=== PATIENT | male | born 1995 | race Caucasian/White ===

== ENCOUNTER 2018-10-01 01:34 | Emergency (ER) | payer MEDICAID ==
--- NOTE | 2018-10-01 02:11 | ERPHSYRPT ---
- History of Present Illness Time Seen by Provider: 10/01/18 01:55 Source: patient Patient Subjective Stated Complaint: Right hand/wrist pain Triage Nursing Assessment: Patient ambulated back to ED and transferred self to bed. Patient A+O X 3. Patient's skin pink warm and dry. Patient complains of right hand-wrist pain 04/04. Patient states a steel pipe crushed his right hand/ wrist around 2 weeks ago. Patient states he was seen in [facility] immediate care and [place] [facility] and was dx with infection and fx. Patient states he was givien a wrist brace and 3 different antibiotics, which he can't remember the name. Patient states he reinjured his right hand/wrist going up wet stairs and he tried to catch himself using his right hand/wrist. Patient's right wrist-hand noted to be swollen, red and warm. Pulses wnl Patient's lungs clear a/p ashlie. Heart tones WNL Physician History: 22 y/o right handed white male presents with right hand and wrist pain, redness and swelling. present for approx 2 weeks after an injury at work. pt seen at an urgent care center and given antibx. no specific fx noted per pt. pt continues antibx keflex and another. pt slipped on steps earlier today and caught his right hand and wrist. pt travels for his job and has not stopped working or been able to see a pcp or orthopedic surgeon. Occurred: other (in the last 2 weeks or so.) Method of Injury: fell Quality: aching Severity of Pain-Max: moderate Severity of Pain-Current: moderate Extremities Pain Location: hand: right Modifying Factors: Improves With: movement Allergies/Adverse Reactions: No Known Drug Allergies Allergy (Verified 10/01/18 01:43) Home Medications: No Reportable Medications [No Reported Medications] 12/09/14 [History] Hx Tetanus, Diphtheria Vaccination/Date Given: Yes Hx Influenza Vaccination/Date Given: Yes Hx Pneumococcal Vaccination/Date Given: No Immunizations Up to Date: Yes - Review of Systems Constitutional: No Symptoms Eyes: No Symptoms Ears, Nose, & Throat: No Symptoms Respiratory: No Symptoms Cardiac: No Symptoms Abdominal/Gastrointestinal: No Symptoms Genitourinary Symptoms: No Symptoms Musculoskeletal: Fall, Injury (right hand and wrist) Skin: Other (redness dorsal aspect right hand) Neurological: No Symptoms Psychological: No Symptoms Endocrine: No Symptoms Hematologic/Lymphatic: No Symptoms Immunological/Allergic: No Symptoms All Other Systems: Reviewed and Negative - Past Medical History Pertinent Past Medical History: No Neurological History: No Pertinent History ENT History: No Pertinent History Cardiac History: No Pertinent History Respiratory History: Asthma Endocrine Medical History: No Pertinent History Musculoskeletal History: No Pertinent History GI Medical History: No Pertinent History History: No Pertinent History Psycho-Social History: No Pertinent History Male Reproductive Disorders: No Pertinent History - Past Surgical History Past Surgical History: Yes Neuro Surgical History: No Pertinent History Cardiac: No Pertinent History Respiratory: No Pertinent History Gastrointestinal: No Pertinent History Genitourinary: No Pertinent History Musculoskeletal: Orthopedic Surgery Male Surgical History: No Pertinent History Other Surgical History: LEFT WRIST SURGERY - Social History Smoking Status: Current every day smoker How long have you smoked: 4 Exposure to second hand smoke: No Alcohol Use: Socially Drug Use: none Patient Lives Alone: Yes Significant Family History: no pertinent family hx - Nursing Vital Signs Nursing Vital Signs: Initial Vital Signs Temperature 98.3 F 10/01/18 01:44 Pulse Rate 118 H 10/01/18 01:44 Respiratory Rate 18 10/01/18 01:44 Blood Pressure 146/92 10/01/18 01:44 O2 Sat by Pulse Oximetry 97 10/01/18 01:44 Pain Scale Pain Intensity 8 - Physical Exam General Appearance: no apparent distress, alert, anxiety Eyes, Ears, Nose, Throat Exam: normal ENT inspection, moist mucous membranes Neck Exam: normal inspection, non-tender, supple, full range of motion Cardiovascular/Respiratory Exam: chest non-tender, normal breath sounds Abdominal Exam: non-tender, soft Back Exam: normal inspection, normal range of motion, No CVA tenderness, No vertebral tenderness Shoulder Exam: normal inspection, non-tender, no evidence of injury, normal ROM Elbow/Forearm Exam: normal inspection, non-tender, no evidence of injury, normal ROM Wrist Exam: normal ROM, bone tenderness, soft tissue tenderness, swelling Hand Exam: normal ROM, bone tenderness, soft tissue tenderness, swelling Neuro/Tendon Exam: normal sensation, normal motor functions, normal tendon functions, responds to pain Mental Status Exam: alert, oriented x 3, cooperative Skin Exam: warm, dry, other (mild redness right hand dorsal aspect) SpO2 Interpretation: normal SpO2: 97 O2 Delivery: Room Air Ordered Tests: Active Orders 24 hr Category Date Time Status HAND (MINIMUM 3 VIEWS) Stat Exams 10/01/18 02:20 Taken - Progress Progress: unchanged Progress Note: 10/01/18 06:14 xray hand and wrist negative per radiologist report. 10/01/18 06:15 0320 pt states he has to leave and signed out ama prior to xray report - Departure Time of Disposition: 03:20 Departure Disposition: AMA Clinical Impression: Right hand pain, Right wrist pain Condition: Stable Critical Care Time: No Referrals: DOCTOR,NO FAMILY [Primary Care Provider] -
[2018-10-01 02:38] VITALS: BP 135/64; PULSE 81
[2018-10-01 06:16] VITALS: O2SAT 97
--- NOTE | 2018-10-01 09:10 | XRAY ---
Indication: Crush injury. Metacarpal/carpal pain. Comparison: December 09, 2014. 3 views of the right hand demonstrates what appears to be old injury involving the tuft of the 2nd phalanx. Stable scaphoid bone island. No other bony, articular, or soft tissue abnormalities. Comment: Preliminary interpretation was made by [facility] does not report incidental scaphoid bone island.
== END 2018-10-01 03:06 | disposition left against medical advice (07) ==
LOC: ED 01:34
DX: M79.641 Pain in right hand (principal); M25.531 Pain in right wrist; W01.198A Fall on same level from slipping, tripping and stumbling with subsequent striking against other object, initial encounter; J45.909 Unspecified asthma, uncomplicated; M79.89 Other specified soft tissue disorders; M25.431 Effusion, right wrist
CPT/HCPCS: 73130; 99283

== ENCOUNTER 2018-12-11 17:01 | Emergency (ER) | payer MEDICAID ==
--- NOTE | 2018-12-11 17:34 | ERPHSYRPT ---
- History of Present Illness Time Seen by Provider: 12/11/18 17:25 Historian: patient Patient Subjective Stated Complaint: Patient's eyes have been yellow for 3-4 days, upper right abdominal pain, bilateral flank pain, pain with palpatation in bilateral lower quadrants and right upper quadrant, went to donate plasma 6 months ago and was told that he had Hep C, has not seeked professional help, N&V , diarrhea Triage Nursing Assessment: Pt's skin and eyes are yellow, vitals wnl, rates pain 6/10 in abdomen and back, denies frequent drug use, denies drinking alcohol , thinks he acquired hepatitis while in senior living and got tattoos, he was also a needle drug user, Physician History: 23y y/o white male with known iv drug abuse hx, in senior living in past and known h/o hep c, presents with 3 day h/o n/v/d, right upper quad abd pain and bilat flank pain. pt no longer using illicit drugs. admitted to methamphetamine use one month ago. Timing/Duration: day(s) (3) Activities at Onset: none Quality: aching, pressure, stabbing Abdominal Pain Onset Location: RUQ Pain Radiation: flank (bilat) Severity of Pain-Max: moderate Severity of Pain-Current: moderate Modifying Factors: Improves With: vomiting Associated Symptoms: diarrhea, fever/chills, nausea, vomiting Previous symptoms: no prior history Allergies/Adverse Reactions: No Known Drug Allergies Allergy (Verified 12/11/18 17:25) Home Medications: No Reportable Medications [No Reported Medications] 12/09/14 [History] Hx Tetanus, Diphtheria Vaccination/Date Given: Yes Hx Influenza Vaccination/Date Given: Yes Hx Pneumococcal Vaccination/Date Given: No - Review of Systems Constitutional: Fever, Weakness Eyes: Other (yellow) Ears, Nose, & Throat: No Symptoms Respiratory: No Symptoms Cardiac: No Symptoms Abdominal/Gastrointestinal: Abdominal Pain, Nausea, Vomiting, Diarrhea Genitourinary Symptoms: No Symptoms Musculoskeletal: No Symptoms Skin: Other (jaundice) Neurological: No Symptoms Psychological: No Symptoms Endocrine: No Symptoms Hematologic/Lymphatic: No Symptoms Immunological/Allergic: No Symptoms All Other Systems: Reviewed and Negative - Past Medical History Pertinent Past Medical History: No Neurological History: No Pertinent History ENT History: No Pertinent History Cardiac History: No Pertinent History Respiratory History: Asthma Endocrine Medical History: No Pertinent History Musculoskeletal History: No Pertinent History GI Medical History: No Pertinent History History: No Pertinent History Psycho-Social History: No Pertinent History Male Reproductive Disorders: No Pertinent History - Past Surgical History Past Surgical History: Yes Neuro Surgical History: No Pertinent History Cardiac: No Pertinent History Respiratory: No Pertinent History Gastrointestinal: No Pertinent History Genitourinary: No Pertinent History Musculoskeletal: Orthopedic Surgery Male Surgical History: No Pertinent History Other Surgical History: LEFT WRIST SURGERY - Social History Smoking Status: Current every day smoker How long have you smoked: 4 Exposure to second hand smoke: Yes Alcohol Use: Socially Drug Use: none Patient Lives Alone: No Significant Family History: no pertinent family hx - Nursing Vital Signs Nursing Vital Signs: Initial Vital Signs Temperature 97.5 F 12/11/18 17:14 Pulse Rate 68 12/11/18 17:14 Blood Pressure 112/73 12/11/18 17:14 O2 Sat by Pulse Oximetry 100 12/11/18 17:14 Pain Scale Pain Intensity 0 - Physical Exam General Appearance: mild distress, alert, anxiety Eye Exam: scleral icterus Ears, Nose, Throat Exam: normal ENT inspection, dry mucous membranes Neck Exam: normal inspection, non-tender, supple, full range of motion Respiratory Exam: normal breath sounds, lungs clear, airway intact, No chest tenderness, No respiratory distress Cardiovascular Exam: regular rate/rhythm, normal heart sounds, normal peripheral pulses Gastrointestinal/Abdomen Exam: soft, normal bowel sounds, tenderness (ruq), guarding, No rebound Back Exam: normal inspection, normal range of motion, No CVA tenderness, No vertebral tenderness Extremity Exam: normal inspection, normal range of motion, pelvis stable Neurologic Exam: alert, oriented x 3, cooperative, 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 as tested Skin Exam: jaundice Lymphatic Exam: No adenopathy SpO2 Interpretation: normal SpO2: 100 O2 Delivery: Room Air - Course Nursing assessment & vital signs reviewed: Yes Ordered Tests: Active Orders 24 hr Category Date Time Status IV Insertion STAT Care 12/11/18 17:37 Active ABDOMEN AND PELVIS W/0 CONTRAS [CT] Stat Exams 12/11/18 17:39 Taken AMYLASE Stat Lab 12/11/18 18:00 Completed CBC W DIFF Stat Lab 12/11/18 18:00 Completed CMP Stat Lab 12/11/18 18:00 Completed LIPASE Stat Lab 12/11/18 18:00 Completed Lactic Acid Stat Lab 12/11/18 18:00 Completed Manual Differential NC Stat Lab 12/11/18 18:00 Completed Potassium (Lab Test) [Potassium] Stat Lab 12/11/18 20:45 Completed UA W/RFX UR CULTURE Stat Lab 12/11/18 19:47 Completed Respiratory Nebulizer STAT RT 12/11/18 18:44 Completed Respiratory Therapy Assessment DAILY RT 12/11/18 18:51 Completed Medication Summary Generic Name Dose Route Start Last Admin Trade Name Freq PRN Reason Stop Dose Admin Furosemide 20 mg 12/12/18 19:07 12/11/18 19:16 Lasix 20 Mg/2 Ml IV 12/12/18 19:08 20 mg STAT ONE Administration Discontinued Medications Generic Name Dose Route Start Last Admin Trade Name Freq PRN Reason Stop Dose Admin Albuterol Sulfate 2.5 mg 12/11/18 18:43 12/11/18 18:55 Proventil 2.5 Mg/3 Ml Neb IH 12/11/18 18:44 2.5 mg STAT ONE Administration Albuterol Sulfate Confirm 12/11/18 18:50 Proventil 2.5 Mg/3 Ml Neb Administered 12/11/18 18:51 Dose 2.5 mg IH .STK-MED ONE Calcium Gluconate 1,000 mg 12/11/18 18:45 12/11/18 19:10 Calcium Gluconate 10% 1000 Mg IV 12/11/18 18:46 1,000 mg STAT ONE Administration Calcium Gluconate Confirm 12/11/18 18:54 Calcium Gluconate 10% 1000 Mg Administered 12/11/18 18:55 Dose 1,000 mg IV .STK-MED ONE Dextrose 50 ml 12/11/18 18:43 12/11/18 19:07 D50w 50 Ml Abboject IV 12/11/18 18:44 50 ml STAT ONE Administration Dextrose Confirm 12/11/18 18:55 D50w 50 Ml Abboject Administered 12/11/18 18:56 Dose 50 ml IV .STK-MED ONE Furosemide Confirm 12/11/18 19:13 Lasix 40 Mg/4 Ml Administered 12/11/18 19:14 Dose 40 mg .ROUTE .STK-MED ONE Sodium Chloride 1,000 mls @ 999 mls/hr 12/11/18 17:37 12/11/18 18:55 Sodium Chloride 0.9% 1000 Ml IV 12/11/18 18:37 Infused .Q1H1M STA Infusion Sodium Chloride Confirm 12/11/18 17:46 Sodium Chloride 0.9% 1000 Ml Administered 12/11/18 17:47 Dose 1,000 mls @ ud .ROUTE .STK-MED ONE Sodium Chloride Confirm 12/11/18 18:55 Sodium Chloride 0.9% 50 Ml Administered 12/11/18 18:56 Dose 50 mls @ ud IV .STK-MED ONE Insulin Human Regular 2 unit 12/11/18 19:08 12/11/18 19:44 Novolin R IV 12/11/18 19:09 2 unit STAT ONE Administration Insulin Human Regular Confirm 12/11/18 19:43 Novolin R Administered 12/11/18 19:44 Dose 2 unit .ROUTE .STK-MED ONE Ondansetron HCl 4 mg 12/11/18 17:37 12/11/18 17:48 Zofran 4 Mg/2 Ml Vial IV 12/11/18 17:38 4 mg STAT ONE Administration Ondansetron HCl Confirm 12/11/18 17:46 Zofran 4 Mg/2 Ml Vial Administered 12/11/18 17:47 Dose 4 mg .ROUTE .STK-MED ONE Sodium Polystyrene Sulfonate 30 g 12/11/18 18:45 12/11/18 19:01 Kayexylate 15 Gm/60 Ml PO 12/11/18 18:46 30 g STAT ONE Administration Sodium Polystyrene Sulfonate Confirm 12/11/18 18:54 Kayexylate 15 Gm/60 Ml Administered 12/11/18 18:55 Dose 15 g .ROUTE .STK-MED ONE Sodium Polystyrene Sulfonate Confirm 12/11/18 19:03 Kayexylate 15 Gm/60 Ml Administered 12/11/18 19:04 Dose 15 g .ROUTE .STK-MED ONE Lab/Rad Data: Laboratory Result Diagrams 12/11/18 18:00 12/11/18 20:45 Laboratory Results 12/11/18 12/11/18 12/11/18 Range/Units 20:45 19:47 18:00 WBC (4.0-10.5) K/mm3 RBC (4.1-5.6) M/mm3 Hgb (12.5-18.0) gm/dl Hct (42-50) % MCV (78-100) fl MCH (26-32) pg MCHC (32-36) g/dl RDW (11.5-14.0) % Plt Count (150-450) K/mm3 MPV (6-9.5) fl Sodium (137-145) mmol/L Potassium 3.5 D (3.5-5.1) mmol/L Chloride (98-107) mmol/L Carbon Dioxide (22-30) mmol/L Anion Gap (5-15) MEQ/L BUN (9-20) mg/dL Creatinine (0.66-1.25) mg/dL Estimated GFR ML/MIN Glucose (74-106) mg/dL Lactic Acid (0.4-2.0) Calcium (8.4-10.2) mg/dL Total Bilirubin (0.2-1.3) mg/dL AST (17-59) U/L ALT (0-50) U/L Alkaline Phosphatase (38-126) U/L Ammonia 21 (9-30) umol/L Serum Total Protein (6.3-8.2) g/dL Albumin (3.5-5.0) g/dL Amylase (30-110) U/L Lipase (23-300) U/L Urine Color CRISTINA (YELLOW) Urine Appearance CLEAR (CLEAR) Urine pH 6.0 (5-6) Ur Specific [place] 1.005 (1.005-1.025) Urine Protein NEGATIVE (Negative) Urine Ketones NEGATIVE (NEGATIVE) Urine Blood SMALL (0-5) Bryant/ul Urine Nitrite NEGATIVE (NEGATIVE) Urine Bilirubin NEGATIVE (NEGATIVE) Urine Urobilinogen 2 (0-1) mg/dL Ur Leukocyte Esterase NEGATIVE (NEGATIVE) Urine WBC (Auto) NONE (0-5) /HPF Urine RBC (Auto) NONE (0-2) /HPF U Epithel Cells (Auto) NONE (FEW) /HPF Urine Bacteria (Auto) NONE (NEGATIVE) /HPF Urine Culture Reflexed NO (NO) Urine Glucose NEGATIVE (NEGATIVE) mg/dL 12/11/18 12/11/18 12/11/18 Range/Units 18:00 18:00 18:00 WBC 6.2 (4.0-10.5) K/mm3 RBC 4.91 (4.1-5.6) M/mm3 Hgb 14.7 (12.5-18.0) gm/dl Hct 44.6 (42-50) % MCV 90.8 (78-100) fl MCH 29.9 (26-32) pg MCHC 33.0 (32-36) g/dl RDW 15.1 H (11.5-14.0) % Plt Count 410 (150-450) K/mm3 MPV 9.9 H (6-9.5) fl Sodium 137 (137-145) mmol/L Potassium 6.7 H* (3.5-5.1) mmol/L Chloride 100 (98-107) mmol/L Carbon Dioxide 27 (22-30) mmol/L Anion Gap 16.8 H (5-15) MEQ/L BUN 7 L (9-20) mg/dL Creatinine 0.90 (0.66-1.25) mg/dL Estimated GFR > 60.0 ML/MIN Glucose 89 (74-106) mg/dL Lactic Acid 1.5 (0.4-2.0) Calcium 9.0 (8.4-10.2) mg/dL Total Bilirubin 8.00 H (0.2-1.3) mg/dL AST 245 H (17-59) U/L ALT 558 H (0-50) U/L Alkaline Phosphatase 402 H (38-126) U/L Ammonia (9-30) umol/L Serum Total Protein 9.4 H (6.3-8.2) g/dL Albumin 4.3 (3.5-5.0) g/dL Amylase 94 (30-110) U/L Lipase 101 (23-300) U/L Urine Color (YELLOW) Urine Appearance (CLEAR) Urine pH (5-6) Ur Specific [place] (1.005-1.025) Urine Protein (Negative) Urine Ketones (NEGATIVE) Urine Blood (0-5) Bryant/ul Urine Nitrite (NEGATIVE) Urine Bilirubin (NEGATIVE) Urine Urobilinogen (0-1) mg/dL Ur Leukocyte Esterase (NEGATIVE) Urine WBC (Auto) (0-5) /HPF Urine RBC (Auto) (0-2) /HPF U Epithel Cells (Auto) (FEW) /HPF Urine Bacteria (Auto) (NEGATIVE) /HPF Urine Culture Reflexed (NO) Urine Glucose (NEGATIVE) mg/dL - Progress Progress: improved, re-examined Progress Note: 12/11/18 21:[address] cunningham(general surgeon covering for gastroenterology). i reviewed hx, condition, lab and ct scan results of gb wall thickening form contracted gb. small amt pericholecystectomy. she agrees pt may be discharged to home if potassium is lowered. she will be arranging appointment for pt with gastroenterology tomorrow. i faxed facesheet to [phone]. her office # [phone]. i gave dr. rosario pt phone # [phone]. they are to call him tomorrow. Counseled pt/family regarding: lab results, diagnosis, need for follow-up, rad results - Departure Departure Disposition: Home Clinical Impression: Hyperkalemia, Elevated liver enzymes, Jaundice Condition: Stable Critical Care Time: Yes Critical Care Time(excluding separately billable procedures): 30-74 minutes Referrals: RENE ZUÑIGA [Primary Care Provider] - Additional Instructions: drink plenty of fluids. avoid all illicit drugs and alcohol. if you do not hear from general expeditor by noon tomorrow. call dr. solis office at [phone] to remind her to arrange appointment with general expeditor.
[2018-12-11] MEDS ORDERED: Sodium Chloride 0.9% 1000 ML 1,000 ML IV STA (17:37)
[2018-12-11] MEDS ORDERED: Zofran 4 MG/2 ML VIAL IV ONE (17:37)
[2018-12-11] MEDS ORDERED: Zofran 4 MG/2 ML VIAL ONE (17:46)
[2018-12-11] MEDS ORDERED: Sodium Chloride 0.9% 1000 ML 1,000 ML ONE (17:46)
[2018-12-11 18:04] LABS: Hematocrit 44.6 % (42-50); Hemoglobin 14.7 gm/dl (12.5-18.0); Mean Cell Volume 90.8 fl (78-100); Mean Corpuscular Hemoglobin 29.9 pg (26-32); Mean Platelet Volume 9.9 fl (6-9.5); Platelet Count 410 K/mm3 (150-450); Red Blood Count 4.91 M/mm3 (4.1-5.6); Red Cell Distribution Width 15.1 % (11.5-14.0); White Blood Count 6.2 K/mm3 (4.0-10.5)
[2018-12-11 18:16] LABS: ALBUMIN 4.3 g/dL (3.5-5.0); ALKALINE PHOSPHATASE 402 U/L (38-126); AMYLASE 94 U/L (30-110); ANION GAP 16.8 MEQ/L (5-15); BLOOD UREA NITROGEN 7 mg/dL (9-20); CHLORIDE 100 mmol/L (98-107); Carbon Dioxide 27 mmol/L (22-30); Glucose 89 mg/dL (74-106); LIPASE 101 U/L (23-300); SGOT/AST 245 U/L (17-59); SGPT/ALT 558 U/L (0-50); SODIUM 137 mmol/L (137-145); Total Protein 9.4 g/dL (6.3-8.2)
[2018-12-11 18:39] LABS: Potassium 6.7 mmol/L (3.5-5.1)
[2018-12-11] MEDS ORDERED: PROVENTIL 2.5 MG/3 ML NEB IH ONE ×2 (18:43→18:50)
[2018-12-11] MEDS ORDERED: D50W 50 ml Abboject IV ONE ×2 (18:43→18:55)
[2018-12-11] MEDS ORDERED: Calcium Gluconate 10% 1000 MG IV ONE ×2 (18:45→18:54)
[2018-12-11] MEDS ORDERED: Kayexylate 15 GM/60 ML PO ONE (18:45)
[2018-12-11] MEDS ORDERED: Kayexylate 15 GM/60 ML ONE ×2 (18:54→19:03)
[2018-12-11] MEDS ORDERED: NovoLIN R IV ONE (19:08)
[2018-12-11] MEDS ORDERED: Lasix 40 MG/4 ML ONE (19:13)
[2018-12-11] MEDS ORDERED: NovoLIN R ONE (19:43)
[2018-12-11 19:58] LABS: Appearance CLEAR (CLEAR); Bilirubin NEGATIVE (NEGATIVE); Blood SMALL Ery/ul (0-5); Glucose NEGATIVE (NEGATIVE); Ketones NEGATIVE (NEGATIVE); Leukocyte Esterase NEGATIVE (NEGATIVE); Nitrite NEGATIVE (NEGATIVE); Protein,Urine Dip NEGATIVE (Negative); Specific Gravity 1.005 (1.005-1.025); Urobilinogen 2 mg/dL (0-1)
[2018-12-11 21:23] VITALS: O2SAT 100
[2018-12-11 21:26] VITALS: BP 135/72; PULSE 98
[2018-12-11 22:32] LABS: ATYPICAL LYMPHS 1 %; Basophil 1 % (0.0-1.0); Eosinophil 3 % (0.00-3.0); Lymphocytes 29 % (24-44); Monocyte 16 % (0.0-12.0); Neutrophils 50 % (36.-66.); Platelet Estimate NORMAL (NORMAL); Total Cells Counted 100
--- NOTE | 2018-12-12 08:37 | XRAY ---
Indication: Right upper quadrant/flank pain. Jaundice. Hepatitis C. Multiple contiguous axial images obtained through the abdomen and pelvis without contrast as ordered. Comparison: None Lung bases demonstrates minimal bibasilar dependent atelectasis. Heart is not enlarged. Right infrahilar calcified node. Stomach is distended with food/fluid. Noncontrasted stomach and bowel loops appear nonobstructed. Normal appendix. Mild/moderate diffuse scattered colonic fecal debris throughout. Gallbladder is contracted with wall thickening but no gallstones or biliary distention. Small pericholecystic fluid concerning for cholecystitis. Spleen is enlarged measuring 13.4 cm in greatest sagittal dimension. Remaining liver, pancreas, adrenal glands, kidneys, ureters, bladder, and aorta appear unremarkable for noncontrast exam. Small centimeter/subcentimeter periaortic nodes. Osseous structures intact. No ventral or inguinal hernias. Impression: 1. Gallbladder wall thickening possibly explained by incomplete distention. Pericholecystic fluid. Rule out acalculous cholecystitis. 2. Fecal stasis without obstruction. 3. Splenomegaly. CT DI 9.23
[2018-12-12] MEDS ORDERED: Lasix 20 MG/2 ML IV ONE (19:07)
[2018-12-13 15:33] LABS: HEPATITIS B VIRUS CORE TOT AB Non Reactive (Non Reactive); HEPATITIS C VIRUS ANTIBODY Weak Reactive (Non Reactive); Hepatitis B Surface Antigen Non Reactive (Non Reactive)
== END 2018-12-11 21:31 | disposition home or self-care (01) ==
LOC: ED 17:01
DX: E87.5 Hyperkalemia (principal); R74.8 Abnormal levels of other serum enzymes; R17 Unspecified jaundice
CPT/HCPCS: 36000; 36415; 74176; 80053; 80074; 81001; 82140; 82150; 82962; 83605; 83690; 84132; 85025; 94640; 96360; 96374; 96375; 99285; J0610; J1940; J2405; J7609; A9270-GY